=== PATIENT | female | born 1975 | race Hispanic/Latino ===

== ENCOUNTER 2018-01-13 12:32 | Inpatient (IN) | payer OTHER, SELFPAY ==
[2018-01-13 13:22] VITALS: BMI 32.1
[2018-01-13] MEDS ORDERED: Ondansetron HCl/PF 4 MG/2 ML Vial ONE ×2 (14:38→17:27)
[2018-01-13] MEDS ORDERED: Ketorolac Tromethamine 30 MG/ML VIAL ONE ×2 (14:38→17:27)
--- NOTE | 2018-01-13 15:07 | ULT ---
OBSTETRIC ULTRASOUND LIMITED SONOGRAPHIC BIOPHYSICAL PROFILE: History: 3rd trimester . Vaginal bleeding. FINDINGS: Single viable intrauterine gestation is present in cephalic presentation. Grade III placenta is anter ior and fundal without evidence of previa. Cervix is predominately obscured by the cranium. Amn iotic fluid index is 3.7. Good tone, breathing movements, and gross movements were demonstrated. IMPRESSION: 1. Sonographic biophysical profile score is: 6/8. 2. Oligohydramnios. EL = 3.7. POS: COLETTE
--- NOTE | 2018-01-13 15:32 | PDOC.LDHP ---
Labor and Delivery H&P Chief complaint: other (Vaginal spotting) HPI: This is a 42 yo female at 36.5 wks presenting to L&D from clinic with a cc of vaginal spotting. She states that the spotting started yesterday morning ( 01/12/18) while she was picking up her baby. She states that the fluid was pink in color and minimal. She states that it is made worse when she bears down. She denies abdominal or vaginal pain. She also states that she had vaginal lesions that started 2 days ago. She denies headaches, chest pain, dyspnea, nausea/ vomiting, and leg swelling. Current gestational age (weeks): 36 (36.5) Due date: 02/05/18 Dating criteria: last menstrual period (Confirmed by ultrasound) Grav: 6 Para: 6 ([id number]) Current complications: other (AMA, Grand multiparity) Abnormal US findings: Yes (Today, EL was 3.7, Anterior fundal placenta) Current medications: pre-humphrey vitamins Previous surgical history: other (right shoulder surgery) Social history: none - Physical Exam Vital signs reviewed and normal: yes General: NAD, resting Heart: RRR Lungs: CTAB Abdomen: NTTP Extremeties: no edema (Pulses present) Bovina contractions every: Baseline heart rate 160, moderate variablity, reactive NST - Vaginal Exam cm dilated: 0 (pink mucus, closed cervix, numerous vesicular leasions) Effacement: 0% - OB Labs Blood type: O RH: positive HIV: negative RPR: negative HEPSAg: negative 1 hour GCT: negative GBS: negative Rubella: immune - Assessment A/P 1. Admit to labor and delivery [id number] was educated on risks and benefits of and patient elects to proceed 2. Suspected PPROM due to oligohydramnios and visualized fluid from cervical os with valsalva occurring during clinic visit today 3. 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 AMA 5. Grand Multiparity <Rambo Wilson - Last Filed: 01/13/18 15:25> Para: 5 - OB Labs Antibody Screen: negative <Kathleen Canseco - Last Filed: 01/13/18 16:14> Allergies/Adverse Reactions: Allergies Allergy/AdvReac Type Severity Reaction Status Date / Time No Known Allergies Allergy Verified 01/13/18 13:11 Attending Addendum - Attending Addendum Date/Time: 01/13/18 3290 I personally evaluated the patient and discussed the management with Dr. Wilson I agree with the History, Examination, Assessment and Plan documented above with any addition or exceptions noted below. 42 yo at 36w5d dated by LMP consistent with 19w US sent from clinic for bleeding. Pt reports light pink discharge that started on the morning of the day prior to presentation. Discharge and light pink. Feels like she is peeling herself. Also complains of new vaginal rash that is painful and vesicular in nature. Denies ever having similar symptoms in past. On US she was found to have an EL of 3.7. Negative ferning and no pooling or fluid seen through os with valsalva. Amnisure not performed due to presence of blood. Active vesicular lesions and erythematous ulcerations noted at introitus and on vaginal side alston. Unable to definitively rule out rupture of membranes but given oligohydramnios delivery is indicated regardless. Primary delivery is recommended due to presence of active HSV lesions. Risks/benefits/ alternatives to delivery were discussed. Pt verbalized understanding and would like to proceed with delivery. Will give betamethasone as fetus is . <Kathleen Canseco - Last Filed: 01/13/18 16:14>
--- NOTE | 2018-01-13 15:33 | PDOC.APC ---
Antepartum Consult CONNIE JASMINE is a 42 year old female at 36w5d here to r/o SROM. I was consulted by Dr. Canseco with [facility] for spotting ( which limits the use of amnisure), oligohydramnios on ultrasound, and recent diagnosis of HSV (suspected primary outbreak) with active lesions. I performed a ferning test which was negative, however, I am not comfortable using this single test to completely rule out SROM. With the diagnosis of oligohydramnios alone, delivery between 36-38 weeks is recommended. Given this, along wtih the patient's new diagnosis of HSV with active lesions present and inability to completely rule out SROM, I recommend delivery as soon as possible by primary LTCS.
[2018-01-13] MEDS ORDERED: Docusate 100 MG CAP PO PRN (15:50)
[2018-01-13] MEDS ORDERED: Ondansetron HCl/PF 4 MG/2 ML Vial IVP PRN ×3 (15:50→16:37)
[2018-01-13] MEDS ORDERED: Promethazine HCl 25 MG/ML VIAL IM PRN ×2 (15:50→16:37)
[2018-01-13] MEDS ORDERED: CEFAZOLIN/Water 2 GM/20 ML SYRINGE SLOW IVP SCH (16:00)
[2018-01-13] MEDS ORDERED: Bicitra 30 ML UDCUP PO SCH (16:00)
[2018-01-13] MEDS ORDERED: Azithromycin 500 MG in Sodium Chloride 0.9% 250 ML 250 ML IVPB SCH (16:00)
[2018-01-13] MEDS: Lactated Ringer's 1,000 ML IV SCH ×3 (16:02→16:48)
[2018-01-13 16:14] LABS: Hemoglobin 14.5 g/dL (12.0-16.0); Mean Corpuscular HGB CONC 34.1 g/dL (32.0-36.0); Mean Corpuscular Volume 90.8 fL (78.0-98.0); Mean Platelet Volume 7.3 fL (7.4-10.4); Platelet Count 253 thou/uL (130-400); RBC Distribution Width 12.4 % (11.5-14.5); Red Blood Cell (RBC) Count 4.67 mill/uL (4.20-5.40); White Blood Cell (WBC) Count 12.1 thou/uL (4.8-10.8)
[2018-01-13] MEDS ORDERED: Betamet Acet/Betamet Na Ph 30 MG/5 ML VIAL IM SCH (16:15)
[2018-01-13] MEDS ORDERED: Eucerin (Mineral Oil/Petrolatum,White) 30 gm Jar TOP PRN (16:37)
[2018-01-13] MEDS ORDERED: Promethazine HCl 25 MG SUPP PR PRN (16:37)
[2018-01-13] MEDS ORDERED: Acetaminophen 1,000 MG in Premix Bag 1 BAG IVPB PRN (16:37)
[2018-01-13] MEDS ORDERED: diphenhydrAMINE 50 MG/ML VIAL IVP PRN (16:37)
[2018-01-13] MEDS ORDERED: Naloxone HCl 0.4 mg/ml Vial IVP PRN ×2 (16:37)
[2018-01-13] MEDS ORDERED: Naloxone HCl 0.4 mg/ml Vial IV PRN (16:37)
[2018-01-13] MEDS ORDERED: Communication Order-Pharmacy FS SCH (16:45)
[2018-01-13] MEDS ORDERED: Ketorolac Tromethamine 30 MG/ML VIAL IVP SCH (16:45)
[2018-01-13 16:56] LABS: HBSAg Index 0.21 S/CO (0-0.99); HIV (1/2) Antibody/Antigen Non-Reactive (NonReactive); HIV 1/2 INDEX 0.09 S/CO (<1.00); Hep B Surf Ag Non-Reactive S/CO (NonReactive); Syphilis Antibody Nonreactive (Nonreactive); Syphilis Antibody Index 0.05 S/CO (<1.00 Non-Reactive)
[2018-01-13] MEDS ORDERED: Oxytocin 10 UNITS/ML VIAL ONE (16:59)
[2018-01-13] MEDS ORDERED: Morphine PF 1 MG/ML SYR ONE (16:59)
[2018-01-13] MEDS ORDERED: Bupivacaine 0.75% W/DEXTROSE 8.25% 2 ML AMP ONE (17:01)
[2018-01-13] MEDS ORDERED: Lidocaine 1% PF 5 ML VIAL ONE (17:01)
[2018-01-13] MEDS ORDERED: PHENYLEPHRINE-NS 100 MCG/ML 10 ML SYRINGE ONE (17:10)
[2018-01-13] MEDS ORDERED: Fentanyl 100 MCG/2 ML VIAL ONE ×3 (17:43→18:03)
--- NOTE | 2018-01-13 19:08 | PDOC.OPDEL ---
OB Operative/Delivery Note Delivery Dr/Surgeon: Britt Meraz MD Assist: Laura Berry DO Pre-Delivery Diagnosis: other (Suspected ROM, active herpes lesions) Procedure/Post Delivery Dx: primary low transverse CS Weeks gestation: 36 (36.5) Anesthesia: spinal - Findings A Sex: male Weight: 2.722 kg - 1 min: 6 - 5 min: 8 - Additional Findings/Plan Placenta delivered: spontaneous findings: low transverse hysterotomy without extension Estimated blood loss: 700 mL Post delivery plan: routine recovery
[2018-01-13] MEDS ORDERED: Lanolin Ointment 7 GM TUBE TOP PRN (19:16)
[2018-01-13] MEDS ORDERED: NS / Oxytocin 40 units/1000ml 1,000 ML IV SCH (19:16)
[2018-01-13] MEDS ORDERED: Bisacodyl 10 MG SUPP PR PRN (19:16)
[2018-01-13] MEDS ORDERED: Adacel (T-DAP) 0.5 ML VIAL IM ONE (19:16)
[2018-01-13] MEDS ORDERED: Acetaminophen 325 MG TAB PO PRN (19:16)
[2018-01-13] MEDS: Ketorolac Tromethamine 30 MG/ML VIAL IVP SCH ×2 (19:31→22:57)
[2018-01-13] MEDS ORDERED: Acyclovir 400 mg Tablet PO SCH (21:00)
[2018-01-13] MEDS ORDERED: Ibuprofen 800 MG TAB PO SCH (22:00)
[2018-01-13] MEDS: Ferrous Sulfate 325 MG TAB PO SCH (22:18)
[2018-01-13] MEDS: Docusate Calcium (SURFAK) 240 MG CAP PO SCH (22:18)
--- NOTE | 2018-01-14 04:31 | PDOC.PP ---
Post Progress Note Post Day #: 1 Subjective: Patient resting comfortably. No complaints. She has not yet been up to walk. No excessive vaginal bleeding. Pain well controlled. No difficulty with breathing. Ambulation: no Vital Signs (12 hours) Temp Pulse Resp BP Pulse Ox 01/13/18 23:45 98.6 F 63 16 100/59 L 01/13/18 22:41 97.9 F 65 16 99/63 01/13/18 21:40 98.6 F 69 16 110/61 01/13/18 19:54 98.1 F 66 18 01/13/18 19:16 98.1 F 66 18 103/57 L 99 Weight Weight 79.832 kg - Physical Examination Cardiovascular: no m/r/g, RRR Respiratory: clear to auscultation bilaterally Abdominal: + bowel sounds, lochia (normal), no distention, appropriately TTP Fundus firm & at: umbilicus Deviation from normal: CS incision dry and covered Result Diagrams: 01/13/18 16:02 Additional Labs: Post Labs Blood Type O POSITIVE 01/13/18 16:02 Hep Bs Antigen Non-Reactive S/CO (NonReactive) 01/13/18 16:02 (1) delivery Code(s): O60.10X0 - LABOR W DELIVERY, UNSP TRIMESTER, UNSP Status: Acute (2) premature rupture of membranes (PPROM) delivered, current hospitalization Code(s): O42.919 - PRETRM MATIAS ROM, UNSP TIME BETW RUPT AND ONST LABR, UNSP TRI Status: Acute (3) Oligohydramnios delivered Code(s): O41.00X0 - OLIGOHYDRAMNIOS, UNSP TRIMESTER, NOT APPLICABLE OR UNSP Status: Acute (4) Herpes simplex virus (HSV) infection of vagina Code(s): A60.04 - HERPESVIRAL VULVOVAGINITIS Status: Acute (5) Advanced maternal age (AMA), 40 years or greater Code(s): HJR9358 - Status: Chronic - Assessment/Plan 42 yr old G6-->6006 at 36.5 wks now on post op day 1, delivered via secondary to suspected PPROM with oligohydramnios. performed 2/2 active HSC infection. 1. sIUP - delivered -EBL 700 ml -doing well -pain controlled -fundus firm -AM H/H labs pending -advance diet as tolerated -encouraged ambulation once able 2. PPROM suspected, s/p delivery 3. oligohydramnios, s/p delivery 4. HSV infection, vaginal -acyclovir <Sylvia Bai - Last Filed: 01/14/18 04:29> Vital Signs (12 hours) Temp Pulse Resp BP 01/14/18 08:05 98.3 F 55 L 20 01/14/18 07:40 98.3 F 55 L 20 88/50 L 01/14/18 04:45 97.9 F 55 L 16 100/60 01/14/18 02:00 16 01/13/18 23:45 98.6 F 63 16 100/59 L Weight Weight 79.832 kg Result Diagrams: 01/14/18 05:10 Additional Labs: Post Labs Blood Type O POSITIVE 01/13/18 16:02 Hep Bs Antigen Non-Reactive S/CO (NonReactive) 01/13/18 16:02 <Kathleen Canseco - Last Filed: 01/14/18 10:48> Attending Addendum - Attending Addendum Date/Time: 01/14/18 1047 I personally evaluated the patient and discussed the management with Dr. Bai I agree with the History, Examination, Assessment and Plan documented above with any addition or exceptions noted below. UOP average 80 ml/hr over 12hrs <Kathleen Canseco - Last Filed: 01/14/18 10:48>
[2018-01-14] MEDS: Ketorolac Tromethamine 30 MG/ML VIAL IVP SCH ×2 (04:32→11:51)
[2018-01-14] MEDS ORDERED: HYDROcodone/Acetaminophen 5/325 mg Tablet PO PRN (04:45)
[2018-01-14 05:33] LABS: Hemoglobin 11.9 g/dL (12.0-16.0); Mean Corpuscular HGB CONC 34.3 g/dL (32.0-36.0); Mean Corpuscular Hemoglobin 31.7 pg (27.0-31.0); Mean Corpuscular Volume 92.3 fL (78.0-98.0); Mean Platelet Volume 7.4 fL (7.4-10.4); Platelet Count 212 thou/uL (130-400); RBC Distribution Width 12.3 % (11.5-14.5); Red Blood Cell (RBC) Count 3.74 mill/uL (4.20-5.40); White Blood Cell (WBC) Count 14.6 thou/uL (4.8-10.8)
--- NOTE | 2018-01-14 05:40 | DN-2 ---
DATE OF PROCEDURE: 01/13/2018 RESIDENT SURGEON: Britt Meraz M.D. INFORMATION TECHNOLOGY ARCHITECT SURGEON: Laura Berry DO ATTENDING SURGEON: Kathleen Canseco D.O. PROCEDURE: Primary low transverse section. PREOPERATIVE DIAGNOSES: 1. intrauterine . 2. Rupture of membranes. 3. Positive HSV lesions. 4. Advanced maternal age. 5. Primary history of autism. POSTOPERATIVE DIAGNOSES: 1. intrauterine . 2. Rupture of membranes. 3. Positive HSV lesions. 4. Advanced maternal age. 5. Primary history of autism. ANESTHESIA: Spinal. INDICATIONS: The patient is a 42-year-old -0-0-5 at 36.5 weeks gestation who presented with con cern for rupture of membranes with active HSV lesions. PROCEDURE IN DETAIL: After risks, benefits, and alternatives were explained to the patient, she gave informed consent. Preoperative antibiotics included cefazolin 2 grams IV and azithromycin 500 mg IV . The patient was taken to the operating room and spinal anesthesia was initiated. She was placed i n supine position with left tilt and prepped and draped in usual sterile fashion. A Pfannenstiel inc ision was made with a scalpel and carried down to the level of the fascia, which was sharply nicked. The fascial cut was extended bilaterally with Mata scissors. The inferior and superior edges of the cut fascial edges were extended with Bree clamps and underlying rectus muscles were sharply and bl untly dissected free. The recti were divided digitally and retracted manually. The peritoneum was e ntered bluntly and retracted manually. Bladder blade was placed. Bladder flap was created with Garrison enbaum scissors. Low transverse scar was made with a scalpel and the uterus was entered in the midli ne with the scalpel. Clear fluid was seen. Hysterotomy was extended manually. The infant was noted to be vertex and delivered by fundal pressure with the addition of a vacuum assist. Mouth and nares were bulb suctioned. Cord clamped and cut and grossly normal male infant was handed to the awaiting nurse. Cord blood obtained and the cord sample was obtained for cord gases. Placenta was manually removed, found to be intact with three-vessel cord and sent to pathology. The uterus was externalize d and endometrium was curetted with a dry lap. Bladder blade was replaced and the uterus was closed with a running locking #1 Monocryl followed by a running nonlocking #1 Monocryl imbricating suture. Following this, hemostasis was noted. Stab wound was irrigated and suctioned free of clots. The [place] was internalized and hysterotomy was again noted to be hemostatic. The fascia was closed with a running nonlocking 0 Vicryl suture. Subcutaneous tissue was irrigated, and all bleeders were cauteri zed. The subcutaneous tissue was approximated with 3 interrupted 2-0 plain gut sutures. The skin wa s approximated with subcuticular 4-0 Monocryl suture in a running fashion. All counts were correct. The patient tolerated procedure well and taken to the recovery room in stable condition. ESTIMATED BLOOD LOSS: 700 mL COMPLICATIONS: None. SPECIMENS: Cord blood sent to lab for blood type and placenta sent to pathology. Cord segment obtai lola for blood gases. FINDINGS: Grossly normal male with Apgars of 6 and 8. Grossly normal placenta with three-ves tiffany cord discarded. DRAINS: Currie to gravity draining clear urine.
[2018-01-14] MEDS: Docusate Calcium (SURFAK) 240 MG CAP PO SCH ×2 (09:17→20:46)
[2018-01-14] MEDS: Prenatal Vitamin 1 TAB PO SCH (09:17)
[2018-01-14] MEDS: Ferrous Sulfate 325 MG TAB PO SCH ×2 (10:13→21:56)
--- NOTE | 2018-01-14 10:52 | PDOC.PP ---
Post Progress Note Post Day #: 1 Subjective: 42 yo [id number] POD# 1 s/p uncomplicated PLTCS for HSV outbreak in the setting of oligohydramnios secondary to suspected PPROM. Pt doing well this morning. Pain controlled. Has not ambulated or had spontaneous urination yet. Bleeding < menses. Denies dizziness. +Flatus. Baby stable in NICU PO intake tolerated: yes Flatus: yes Ambulation: no Vital Signs (12 hours) Temp Pulse Resp BP 01/14/18 08:05 98.3 F 55 L 20 01/14/18 07:40 98.3 F 55 L 20 88/50 L 01/14/18 04:45 97.9 F 55 L 16 100/60 01/14/18 02:00 16 01/13/18 23:45 98.6 F 63 16 100/59 L Weight Weight 79.832 kg - Physical Examination Cardiovascular: no m/r/g, RRR Respiratory: clear to auscultation bilaterally, non-labored breathing Abdominal: + bowel sounds, lochia, no distention, appropriately TTP Fundus firm & at: umbilicus Skin: CS incision dry & intact, no rash Neurological: no gross focal deficits Psychiatric: A&Ox3 Result Diagrams: 01/14/18 05:10 Additional Labs: Post Labs Blood Type O POSITIVE 01/13/18 16:02 Hep Bs Antigen Non-Reactive S/CO (NonReactive) 01/13/18 16:02 (1) delivery due to maternal disorder, delivered, curr hospitaliz Code(s): O82 - ENCOUNTER FOR DELIVERY WITHOUT INDICATION; O99.89 - OTH DISEASES AND CONDITIONS COMPL PREG/CHLDBRTH Status: Acute Comment: meeting appropriate postop milestones. Continue routine care anticipate d/c to home tomorrow or Tuesday (2) Herpes simplex virus (HSV) infection of vagina Code(s): A60.04 - HERPESVIRAL VULVOVAGINITIS Status: Acute Comment: IgG/IgM ordered at request of neonatology Continue acyclovir
[2018-01-14] MEDS: Simethicone Chewable 80 MG TAB PO PRN ×2 (11:52→20:46)
[2018-01-14] MEDS: Ibuprofen 800 MG TAB PO SCH ×2 (15:44→20:46)
[2018-01-14] MEDS: HYDROcodone/Acetaminophen 5/325 mg Tablet PO PRN (20:46)
[2018-01-15] MEDS: HYDROcodone/Acetaminophen 5/325 mg Tablet PO PRN (05:21)
[2018-01-15] MEDS: Ibuprofen 800 MG TAB PO SCH ×3 (05:22→21:03)
--- NOTE | 2018-01-15 06:57 | PDOC.PP ---
Post Progress Note Post Day #: 2 Subjective: Pt. States she is doing well. She has urinated, passed gas, and defecated. She states she is having some pain in her abdomen. She she states the pain is a 5/ 10 and is sharp and crampy. She states the pain is improved from yesterday. She denies nausea and vomiting. PO intake tolerated: yes Flatus: yes Ambulation: yes Vital Signs (12 hours) Temp Pulse Resp BP BP 01/15/18 05:20 98.3 F 59 L 16 90/53 L 01/14/18 23:41 98.0 F 62 16 86/51 L 01/14/18 20:00 97.6 F 63 16 99/50 L Weight Weight 79.832 kg - Physical Examination General: NAD (Resting comfortably) Cardiovascular: no m/r/g, RRR Respiratory: clear to auscultation bilaterally, non-labored breathing Abdominal: + bowel sounds, lochia, no distention, appropriately TTP Fundus firm & at: 4 cm below ubilicus Extremities: negative homans (B) Skin: CS incision dry & intact (Some dried blood at incision however no leaking of fluids), no rash Neurological: no gross focal deficits Psychiatric: A&Ox3, normal affect Result Diagrams: 01/14/18 05:10 Additional Labs: Post Labs Blood Type O POSITIVE 01/13/18 16:02 Hep Bs Antigen Non-Reactive S/CO (NonReactive) 01/13/18 16:02 (1) delivery due to maternal disorder, delivered, curr hospitaliz Code(s): O82 - ENCOUNTER FOR DELIVERY WITHOUT INDICATION; O99.89 - OTH DISEASES AND CONDITIONS COMPL PREG/CHLDBRTH Status: Acute Comment: meeting appropriate postop milestones. Continue routine care anticipate d/c to home tomorrow or Tuesday (2) Herpes simplex virus (HSV) infection of vagina Code(s): A60.04 - HERPESVIRAL VULVOVAGINITIS Status: Acute Comment: IgG/IgM ordered at request of neonatology Continue acyclovir (3) delivery Code(s): O60.10X0 - LABOR W DELIVERY, UNSP TRIMESTER, UNSP Status: Acute (4) premature rupture of membranes (PPROM) delivered, current hospitalization Code(s): O42.919 - PRETRM MATIAS ROM, UNSP TIME BETW RUPT AND ONST LABR, UNSP TRI Status: Acute (5) Oligohydramnios delivered Code(s): O41.00X0 - OLIGOHYDRAMNIOS, UNSP TRIMESTER, NOT APPLICABLE OR UNSP Status: Acute (6) Advanced maternal age (AMA), 40 years or greater Code(s): [id number] - Status: Chronic - Assessment/Plan PPD 2 s/p primary * Encourage ambulation, fluid intake, breast feeding, plan on nexlanon for pp contraception HSV vaginally * Continue acyclovir AMA * Encourage contraception and out patient follow up with education on future risks Oligohydramnios PPROM delivery <Rambo Wilson - Last Filed: 01/15/18 07:43> Vital Signs (12 hours) Temp Pulse Resp BP BP BP 01/15/18 07:59 98.4 F 72 16 113/70 01/15/18 05:20 98.3 F 59 L 16 90/53 L 01/14/18 23:41 98.0 F 62 16 86/51 L Weight Weight 79.832 kg Result Diagrams: 01/14/18 05:10 Additional Labs: Post Labs Blood Type O POSITIVE 01/13/18 16:02 Hep Bs Antigen Non-Reactive S/CO (NonReactive) 01/13/18 16:02 (1) delivery due to maternal disorder, delivered, curr hospitaliz Code(s): O82 - ENCOUNTER FOR DELIVERY WITHOUT INDICATION; O99.89 - OTH DISEASES AND CONDITIONS COMPL PREG/CHLDBRTH Status: Acute Comment: meeting appropriate postop milestones. Continue routine care anticipate d/c to home tomorrow or Tuesday (2) Herpes simplex virus (HSV) infection of vagina Code(s): A60.04 - HERPESVIRAL VULVOVAGINITIS Status: Acute Comment: IgG/IgM ordered at request of neonatology Continue acyclovir <Kathleen Canseco - Last Filed: 01/15/18 11:12> Attending Addendum - Attending Addendum Date/Time: 01/15/18 1109 I personally evaluated the patient and discussed the management with Dr. Wilson I agree with the History, Examination, Assessment and Plan documented above with any addition or exceptions noted below. 42 yo POD #2 s/p uncomplicated PLTCS for active HSV infection in the setting of oligohydramnios secondary to suspected PPROM Doing well today. Pain controlled. Lochia mild. Ambulating without dizziness. tolerating PO. +Spontaneous voiding and flatus Meeting appropriate milestones Anticipate d/c to home or room in on POD # 3 due to baby still in NICU. HSV antibodies still pending. <Kathleen Canseco - Last Filed: 01/15/18 11:12>
[2018-01-15] MEDS: Acyclovir 400 mg Tablet PO SCH ×4 (10:09→21:03)
[2018-01-15] MEDS: Prenatal Vitamin 1 TAB PO SCH (10:09)
[2018-01-15] MEDS: Docusate Calcium (SURFAK) 240 MG CAP PO SCH ×2 (10:09→19:59)
[2018-01-15] MEDS: Ferrous Sulfate 325 MG TAB PO SCH ×2 (10:41→21:30)
[2018-01-15] MEDS ORDERED: Ibuprofen 800 MG TAB PO SCH (22:00)
[2018-01-16] MEDS: Ibuprofen 800 MG TAB PO SCH ×2 (05:34→15:49)
--- NOTE | 2018-01-16 06:27 | PDOC.PP ---
Post Progress Note Post Day #: 3 Subjective: PT is resting comfortably in bed, no events overnight or complaints today. Denies abdominal pain, N/V/D, constipation. Would like to go home today. PO intake tolerated: yes Flatus: yes Ambulation: yes Vital Signs (12 hours) Temp Pulse Resp BP 01/15/18 20:00 98.3 F 67 20 105/61 Weight Weight 79.832 kg - Physical Examination General: NAD Cardiovascular: no m/r/g, RRR Respiratory: clear to auscultation bilaterally, non-labored breathing Abdominal: + bowel sounds, no distention Fundus firm & at: umbilicus Skin: CS incision dry & intact, no rash Neurological: no gross focal deficits Psychiatric: normal affect Result Diagrams: 01/14/18 05:10 Additional Labs: Post Labs Blood Type O POSITIVE 01/13/18 16:02 Hep Bs Antigen Non-Reactive S/CO (NonReactive) 01/13/18 16:02 (1) delivery due to maternal disorder, delivered, curr hospitaliz Code(s): O82 - ENCOUNTER FOR DELIVERY WITHOUT INDICATION; O99.89 - OTH DISEASES AND CONDITIONS COMPL PREG/CHLDBRTH Status: Acute Comment: has met appropriate post op milestones, will dc today (2) Herpes simplex virus (HSV) infection of vagina Code(s): A60.04 - HERPESVIRAL VULVOVAGINITIS Status: Acute Comment: IgG/IgM ordered at request of neonatology Continue acyclovir (3) Oligohydramnios delivered Code(s): O41.00X0 - OLIGOHYDRAMNIOS, UNSP TRIMESTER, NOT APPLICABLE OR UNSP Status: Resolved (4) delivery Code(s): O60.10X0 - LABOR W DELIVERY, UNSP TRIMESTER, UNSP Status: Resolved (5) premature rupture of membranes (PPROM) delivered, current hospitalization Code(s): O42.919 - PRETRM MATIAS ROM, UNSP TIME BETW RUPT AND ONST LABR, UNSP TRI Status: Resolved (6) Advanced maternal age (AMA), 40 years or greater Code(s): [id number] - Status: Chronic - Assessment/Plan PPD 3 s/p primary - For active HSV infection, suspected PPROM, oligohydramnios - Encourage ambulation, fluid intake, breast feeding, plan on nexlanon for pp contraception HSV vaginally - Continue acyclovir AMA - Encourage contraception and out patient follow up with education on future risks Dispo: will discharge today and encourge follow up for contraception outpatient <Abe Verma - Last Filed: 01/16/18 08:16> Weight Weight 79.832 kg Result Diagrams: 01/14/18 05:10 Additional Labs: Post Labs Blood Type O POSITIVE 01/13/18 16:02 Hep Bs Antigen Non-Reactive S/CO (NonReactive) 01/13/18 16:02 <Carmelina Worthington - Last Filed: 01/16/18 12:58> Attending Addendum - Attending Addendum Date/Time: 01/16/18943 I personally evaluated the patient and discussed the management with Dr. Verma I agree with the History, Examination, Assessment and Plan documented above with any addition or exceptions noted below- Patient without complaints. Ambulating without difficulty. Tolerating diet. Afebrile VSS. A/P: PPD#3 s/p 1* LCT C/S for active HSV- doing well. Ready for discharge. D/C home today . <Carmelina Worthington - Last Filed: 01/16/18 12:58>
[2018-01-16] MEDS: Docusate Calcium (SURFAK) 240 MG CAP PO SCH (09:20)
[2018-01-16] MEDS: Prenatal Vitamin 1 TAB PO SCH (09:20)
[2018-01-16] MEDS: Acyclovir 400 mg Tablet PO SCH ×2 (09:20→15:49)
[2018-01-16] MEDS: Ferrous Sulfate 325 MG TAB PO SCH (09:20)
[2018-01-16 09:58] VITALS: BP 98/54
[2018-01-16 12:29] VITALS: TEMP 98.1
[2018-01-16] MEDS: HYDROcodone/Acetaminophen 5/325 mg Tablet PO PRN (15:51)
[2018-01-16 22:09] LABS: HSV-2 IgG Type Specific Less than 0.91 index (0.00-0.90)
== END 2018-01-16 16:00 | disposition home or self-care (01) | DRG 765 ==
LOC: L&D/OP 12:32 → L&D 16:05 → 3SW 21:34
PROVIDERS: ADMIT Family Medicine; ATTEND Family Medicine
PROC: 10D00Z1 Extraction of Products of Conception, Low, Open Approach (ICD-10-PCS; principal; 2018-01-13)
DX: O98.32 Other infections with a predominantly sexual mode of transmission complicating childbirth (principal); O60.14X0 Preterm labor third trimester with preterm delivery third trimester, not applicable or unspecified; O42.913 Preterm premature rupture of membranes, unspecified as to length of time between rupture and onset of labor, third trimester; Z3A.36 36 weeks gestation of pregnancy; Z37.0 Single live birth
CPT/HCPCS: 36415; 51702; 76815; 76819; 85027; 86694; 86695; 86696; 86780; 86850; 86900; 86901; 87340; 87389; 88307; 90715; 99285; J0456; J0702; J1200; J1885; J2001; J2274; J2405; J2590; J3010; J3490; J7050

== ENCOUNTER 2020-06-03 15:09 | Day surgery (SDC) | payer OTHER ==
--- NOTE | 2020-06-03 15:10 | PDOC.FPROB ---
FMR OB H&P: HPI - History of Present Illness Chief Complaint: tachycardia Indentification: 44 yo @ 37.6 by 23.5 wk sono History of Present Illness: 44 yo @ 37.6 by 23.5 wk sono sent over from procedures clinic for tachycardia. Was there for routine APT due to AMA when NST showed persistent tachycardia in the 170-180s. Mom's pulse rate in the 90s. Aside from feeling more tired mom feels well. Denies fevers, chills, sick contact exposure. Has anemia of , taking iron BID. Endorses FM, denies VB/VD/LOF/CTX. Primary Care Physician: Dr. 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 - 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: Hx of HSV, denies hx of other STDs - Surgical History Sx History: One LTCS in 2018 - Social History Social History: Denies TAD - Family History Family History: Non contributory FMR OB H&P: Medications - Current Home Medications: Medication Instructions Recorded Confirmed Type Pnv No.95/Ferrous Fum/Folic AC 1 cap PO DAILY 08/28/15 06/03/20 History [ Tablet] Acyclovir [Zovirax] 400 mg PO TID 8 Days #24 tab 01/16/18 06/03/20 Rx Aspirin [Aspirin EC] 81 mg PO DAILY 06/03/20 06/03/20 History Allergies/Adverse Reactions: Allergies Allergy/AdvReac Type Severity Reaction Status Date / Time No Known Allergies Allergy Verified 06/03/20 15:54 FMR OB H&P: ROS - Review of Systems General: reports: fatigue. denies: fever/chills, weight/appetite/sleep changes ENT: denies: nasal congestion, rhinorrhea, frequent nose bleed, ear pain, toothache, sore throat Cardiovascular: denies: chest pain, palpitation, edema Respiratory: denies: cough, congestion, shortness of breath Gastrointestinal: denies: abdominal pain, indigestion, bloating, cramping, nausea, diarrhea, constipation Genitourinary (Female): denies: incontinence, dysuria, hematuria, vaginal pain, vaginal bleeding, vaginal pressure Musculoskeletal: denies: pain, stiffness, swelling Neurologic: denies: numbness, syncope, weakness, loss of counsciousness Integumentary: denies: itching, rash, lesions, discoloration Endocrine: denies: cold intolerance, heat intolerance Hematologic/Lymphatic: denies: prolonged or excessive bleeding, enlarged lymph nodes Psychological: denies: depression, anxiety FMR OB H&P: Vital Signs - Maternal Vital signs: BP 117/81 HR 88 T 98.7 - Heart Tones Baseline: 170 Variability: marked Acceleration: present Deceleration: absent Category: category 2 FMR OB H&P: Physical Exam - Physical Exam General: NAD, awake, alert and oriented HEENT: normocephalic and atraumatic, PERRLA, EOMI, MMM, conjunctiva clear, no scleral icterus, grossly normal vision, grossly normal hearing, good dention Neck: supple, FROM, trachea midline Heart: pulses present, no edema Deviation from normal: systolic murmur General: CTAB, no respiratory distress, good air movement, no wheezing, no retractions Abdomen: soft, gravid, fundus(cm) Musculoskeletal: pulses present, FROM in all four extremities Neurological: cranial nerves II through XII intact Skin: no rash, good tugor, capillary refill <2 seconds Lymphatic: no unusual bruising or bleeding, no purpura, no petechia Psychiatric: intact recent and remote memory, good judgement and insight, normal mood and affect FMR OB H&P: A/P Discussion: Date/Time: 06/03/20 1510 tachycardia -Present currently but with accels, no decels -Maternal pulse 90, afebrile -Will obtain BPP to fully assess well being of fetus -Will repeat CBC to assess for underlying maternal anemia -Consider fluid bolus depending on FHT, reassess AMA -Continue APT & PreE ASA ppx Grand multiparity -Aware -Uterotonics at bedside Hx of HSV -No active lesions at this time -Continue HSV ppx Hx of PPROM and PTD at 36.5 with Hx of LTCS 2/2 PPROM with active HSV -Plan for TOLAC at later date This H&P was discussed with Dr. Sosa who agrees with the above documentation and plan. Addendum - Attending - Attending Attestation Date/Time: 06/03/20 5387 I personally evaluated the patient and discussed the management with Dr. Yin. I agree with the History, Examination, Assessment and Plan documented above with any addition or exceptions noted below. tachycardia found on routine antepartum testing at clinic. BPP here 02/15. Hx anemia. check cbc, fluid bolus to see if this will resolve tachy. re- evaluate following fluid bolus.
[2020-06-03] MEDS ORDERED: hydrALAZINE 20 MG/ML VIAL SLOW IVP PRN (15:22)
[2020-06-03 16:01] VITALS: BMI 27.3
--- NOTE | 2020-06-03 17:06 | PDOC.BPN ---
- Brief Progress Note Per US tech, EL ~1202/15. Will await official report. Draw CBC to assess for anemia with hx of anemia of and no recent lab results on file 1L fluid bolus, will reassess afterwards
--- NOTE | 2020-06-03 17:13 | ULT ---
ULTRASOUND BIOPHYSICAL PROFILE: DATE: 06/03/2020 HISTORY: 44-year-old female with tachycardia FINDINGS: breathin tone: 2 movement: 2 Amniotic fluid volume: 2 lie: Vertex Placenta: Posterior. Maternal cervix: Obscured heart rate: 168 BPM EL: 12 cm. IMPRESSION: 1. Normal biophysical profile score of 8 out of 8, excluding the nonstress test. 2. heart rate 168 BPM.
[2020-06-03] MEDS: Lactated Ringer's 1,000 ML IV SCH ×2 (17:15→17:52)
[2020-06-03 17:33] LABS: #Eosinphils 0.4 thou/uL (0.0-0.7); #Lymphocytes 2.1 thou/uL (1.20-3.40); #Monocytes 0.5 thou/uL (0.11-0.59); #Neutrophils 7.2 thou/uL (1.40-6.50); %Basophils 0.4 % (0.0-1.0); %Eosinophils 3.9 % (0.0-10.0); %Lymphocytes 20.6 % (21.0-51.0); %Monocytes 4.7 % (0.0-10.0); %Neutrophils 70.4 % (42.0-75.0); Hemoglobin 11.4 g/dL (12.0-16.0); Mean Corpuscular Hemoglobin 24.4 pg (27.0-31.0); Mean Corpuscular Volume 76.2 fL (78.0-98.0); Mean Platelet Volume 9.2 fL (7.4-10.4); Platelet Count 301 thou/uL (130-400); RBC Distribution Width 16.9 % (11.5-14.5); White Blood Cell (WBC) Count 10.2 thou/uL (4.8-10.8)
--- NOTE | 2020-06-03 19:04 | PDOC.BPN ---
- Brief Progress Note Encounter Date: 06/03/20 Encounter Time: 19:00 Reviewed FHT s/p 1L bolus - now with FHR 130s, mod variability, + accels. Patient without complaint, not feeling contractions at this time. Reviewed labs as well, mild anemia with Hgb 11.4. Dispo: DC to home given improvement in tachycardia. Return if any concerns. F/u with [facility] (Dr. Sarmiento) within 1 week and continue weekly testing for AMA. Discussed with Dr. Torres. Cassi Gonzalez, DO, PGY-1
[2020-06-03 20:23] LABS: Amphetamine Not Detected (NotDetected); Barbiturates Screen Not Detected (NotDetected); Benzodiazepine Screen Not Detected (NotDetected); Cocaine Metabolite Screen Not Detected (NotDetected); Medtox Control Line Valid? VALID (VALID); Medtox Reader # READER 1; Methadone Not Detected (NotDetected); Methamphetamine Not Detected (NotDetected); Opiate Screen Not Detected (NotDetected); Oxycodone Screen Not Detected (NotDetected); Phencyclidine (PCP) Not Detected (NotDetected); THC/Cannabinoid Screen Not Detected (NotDetected); Tricyclic Screen Not Detected (NotDetected)
== END 2020-06-03 19:54 | disposition home or self-care (01) ==
LOC: L&D/OP 15:09
PROVIDERS: ATTEND Family Medicine
DX: O36.8330 Maternal care for abnormalities of the fetal heart rate or rhythm, third trimester, not applicable or unspecified (principal); O99.013 Anemia complicating pregnancy, third trimester; D64.9 Anemia, unspecified; O34.211 Maternal care for low transverse scar from previous cesarean delivery; O09.523 Supervision of elderly multigravida, third trimester; Z3A.37 37 weeks gestation of pregnancy; Z79.82 Long term (current) use of aspirin; Z86.19 Personal history of other infectious and parasitic diseases
CPT/HCPCS: 36415; 76819; 80306; 85025; 99282

== ENCOUNTER 2020-06-09 08:38 | Outpatient (CLI) | payer OTHER ==
[2020-06-09 19:13] LABS: SARS-CoV-2 MS2 Positive; SARS-CoV-2 N Gene Negative; SARS-CoV-2 S Gene Negative; SARS-CoV-2 by NAA Not Detected (NotDetected); SARS-CoV-2 orf1ab Negative
== END 2020-06-09 08:39 | disposition home or self-care (01) ==
LOC: LABBT 08:38
PROVIDERS: ATTEND Family Medicine
DX: Z20.828 Contact with and (suspected) exposure to other viral communicable diseases (principal)
CPT/HCPCS: 87635; U0003

== ENCOUNTER 2020-06-11 19:30 | Inpatient (IN) | payer OTHER, SELFPAY ==
[2020-06-12 04:07] VITALS: BMI 30.2
[2020-06-12] MEDS ORDERED: Meperidine HCl/PF 25 MG/ML VIAL IM/IV PRN (04:20)
[2020-06-12] MEDS ORDERED: Carboprost 250 MCG/ML AMP IM PRN (04:20)
[2020-06-12] MEDS ORDERED: Ondansetron PF 4 MG/2 ML Vial IVP PRN ×3 (04:20→18:26)
[2020-06-12] MEDS ORDERED: Lidocaine 1% (PF) 30 ML VIAL SC PRN (04:20)
[2020-06-12] MEDS ORDERED: Docusate 100 MG CAP PO PRN (04:20)
[2020-06-12] MEDS ORDERED: hydrALAZINE 20 MG/ML VIAL SLOW IVP PRN ×2 (04:20→18:26)
[2020-06-12] MEDS ORDERED: Acetaminophen 500 MG TAB PO PRN (04:20)
[2020-06-12] MEDS ORDERED: Methylergonovine 0.2 MG/ML VIAL IM PRN (04:20)
[2020-06-12] MEDS ORDERED: Butorphanol Tartrate 1 MG/ML VIAL SLOW IVP PRN (04:20)
[2020-06-12] MEDS ORDERED: Promethazine HCl 25 MG/ML VIAL IM PRN ×2 (04:20→14:16)
[2020-06-12] MEDS ORDERED: Ibuprofen 800 MG TAB PO PRN (04:20)
[2020-06-12 04:55] LABS: Hemoglobin 10.8 g/dL (12.0-16.0); Mean Corpuscular HGB CONC 32.1 g/dL (32.0-36.0); Mean Corpuscular Hemoglobin 24.6 pg (27.0-31.0); Mean Corpuscular Volume 76.5 fL (78.0-98.0); Platelet Count 264 thou/uL (130-400); RBC Distribution Width 17.1 % (11.5-14.5); Red Blood Cell (RBC) Count 4.39 mill/uL (4.20-5.40); White Blood Cell (WBC) Count 8.3 thou/uL (4.8-10.8)
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
[2020-06-12 05:37] LABS: Hep B Surf Ag Non-Reactive S/CO (NonReactive); Syphilis Antibody Nonreactive (Nonreactive); Syphilis Antibody Index 0.04 S/CO (<1.00 Non-Reactive)
--- NOTE | 2020-06-12 06:11 | PDOC.OBLPN ---
FMR OB Labor PN: Subj - Interval History Hospital Day: 1 Chief Complaint: eIOL Indentification: 44yo at 39.0wks FMR OB Labor PN: Obj - Maternal Vital signs: BP: [] HR: [] RR: [] Tmax: [] Pox: []% on [] Wt: [] FMR OB Labor PN: Exam - Physical Exam General: NAD, awake, alert and oriented HEENT: normocephalic and atraumatic, EOMI, grossly normal vision, grossly normal hearing Neck: supple, FROM Heart: no edema General: CTAB, no respiratory distress, good air movement Abdomen: soft, gravid, fundus(cm), non-tender Musculoskeletal: FROM in all four extremities Neurological: no focal deficit Lymphatic: no unusual bruising or bleeding Psychiatric: intact recent and remote memory, good judgement and insight, normal mood and affect - Pelvic Exam Membranes: Intact FMR OB Labor PN: Data - Labs Lab results: Laboratory Results - last 24 hr 06/12/20 06/12/20 06/12/20 04:41 04:41 04:41 WBC RBC Hgb Hct MCV MCH MCHC RDW Plt Count MPV Syphilis IgG/IgM Ab Nonreactive Hep Bs Antigen Non-Reactive Blood Type O POSITIVE Antibody Screen NEGATIVE 06/12/20 04:41 WBC 8.3 RBC 4.39 Hgb 10.8 L Hct 33.5 L MCV 76.5 L MCH 24.6 L MCHC 32.1 RDW 17.1 H Plt Count 264 MPV 9.0 Syphilis IgG/IgM Ab Hep Bs Antigen Blood Type Antibody Screen FMR OB Labor PN: A/P Disposition: Pt is a F at 39.1 wga by 23.5wk suhail who presents for IOL. IOL -patient desires TOLAC -cat 1 strip, toco shows irritability -cervical check 2/th/high on admission, Sal[place] of 3 -patient endorses occasional weak contractions Pitocin started at 0700 as balloon placement was not possible -Do not use cytotec as patient is a TOLAC -membranes intact -continue routine monitoring -continue cervical checks q2-3 hours while in latent phase of labor Hx of HSV -On Valtrex -no active lesions visualized on Speculum exam false positive RPR -will follow with RPR on admission vaginal discharge -large amount of white vaginal discharge with sterile speculum exam -VP3 obtained, follow up results Fe deficiency anemia -aware, continue iron Dispo: anticipate Discussion: Date/Time: 06/12/20 0609 This H&P was discussed with Dr. Saranya Perez and Dr. Carmelina Worthington who agree with the above documentation and plan.
[2020-06-12] MEDS ORDERED: NS w/ Oxytocin 10 units 500 ML IV SCH ×2 (06:30)
[2020-06-12] MEDS: Lactated Ringer's 1,000 ML IV SCH ×2 (07:00→13:45)
--- NOTE | 2020-06-12 11:11 | PDOC.OBLPN ---
FMR OB Labor PN: Subj - Interval History Hospital Day: 1 Chief Complaint: eIOL, TOLAC Indentification: 44F @ 39.1wks FMR OB Labor PN: Obj - Maternal Vital signs: BP: [] HR: [] RR: [] Tmax: [] Pox: []% on [] Wt: [] - Procedures Procedures: N/A AROM: clear fluid (Ruptured after cervical check) FMR OB Labor PN: Exam - Physical Exam General: NAD, awake, alert and oriented HEENT: normocephalic and atraumatic, EOMI, grossly normal vision, grossly normal hearing Neck: supple, FROM Heart: no edema General: no respiratory distress Abdomen: gravid Musculoskeletal: FROM in all four extremities Neurological: no focal deficit Skin: no rash Psychiatric: normal mood and affect - Pelvic Exam Vulva: normal hair distribution Cervix: no masses SVE: Membranes: SROM FMR OB Labor PN: Data - Labs Lab results: Laboratory Results - last 24 hr 06/12/20 06/12/20 06/12/20 04:41 04:41 04:41 WBC RBC Hgb Hct MCV MCH MCHC RDW Plt Count MPV Syphilis IgG/IgM Ab Nonreactive Hep Bs Antigen Non-Reactive Blood Type O POSITIVE Antibody Screen NEGATIVE 06/12/20 04:41 WBC 8.3 RBC 4.39 Hgb 10.8 L Hct 33.5 L MCV 76.5 L MCH 24.6 L MCHC 32.1 RDW 17.1 H Plt Count 264 MPV 9.0 Syphilis IgG/IgM Ab Hep Bs Antigen Blood Type Antibody Screen FMR OB Labor PN: A/P Disposition: Pt is a F at 39.1 wga by 23.5wk suhail who presents for IOL. IOL -patient desires TOLAC -cat 1 strip: baseline 130s, no decels, good variability -balloon could not be placed 2/2 cervical positioning, therefore pitocin started Do not use cytotec as patient is a TOLAC -cervical check 2//high on admission * Pitocin started at 0700 * 11:00 2 -toco shows ctx q3min -SROM after cervical check -continue routine monitoring -continue cervical checks q3-4 hours while in latent phase of labor Hx of HSV -On Valtrex -no active lesions visualized on Speculum exam false positive RPR -will follow with RPR on admission vaginal discharge -large amount of white vaginal discharge with sterile speculum exam -VP3 obtained, follow up results Fe deficiency anemia -aware, continue iron Diet: NPO IVF: LR 125mL/h + Pitocin PCP: SAMANTHA Sarmiento Disposition: expect Discussion: Date/Time: 06/12/20 6845 This H&P was discussed with [] and [] who agree with the above documentation and plan.
[2020-06-12] MEDS ORDERED: DISCONTINUE ALL PREVIOUS NARCOTICS FS SCH (13:00)
[2020-06-12] MEDS ORDERED: Bupivacaine 0.5% 20 ML, fentaNYL Citrate/PF 400 MCG in Sodium Chloride 0.9% 72 ML EPIDURAL SCH (13:00)
[2020-06-12] MEDS ORDERED: Bupivacaine/Epinephrine 0.25% 30 ML VIAL ONE (13:04)
[2020-06-12] MEDS ORDERED: Lidocaine 2% MPF 10 ML AMP (For Epidural Use) ONE (13:04)
[2020-06-12] MEDS ORDERED: Acetaminophen 325 MG TAB PO PRN (14:16)
[2020-06-12] MEDS ORDERED: ePHEDrine 50 MG/ML VIAL SLOW IVP PRN (14:16)
[2020-06-12] MEDS ORDERED: Naloxone HCl 0.4 mg/ml Vial IVP PRN ×2 (14:16)
[2020-06-12] MEDS ORDERED: diphenhydrAMINE 50 MG/ML VIAL IVP PRN (14:16)
[2020-06-12] MEDS ORDERED: Lactated Ringer's 500 ML IV PRN (14:16)
[2020-06-12] MEDS ORDERED: Fentanyl 4 mcg/Bupivacaine 0.1% Cassette 100 ML EPIDURAL SCH (14:30)
[2020-06-12] MEDS ORDERED: Communication Order-Pharmacy FS SCH (14:30)
--- NOTE | 2020-06-12 15:12 | PDOC.LDPN ---
Labor & Delivery Progress Note - Subjective Subjective: comfortable, painful contractions - Objective Vital signs reviewed and normal: yes General: NAD Dilation: 4/75/-1 Effacement: 75% Station: -1 FHT: category 1, variability present [place] contractions every: 2 min IUPC placed: yes (1500) Plan: pitocin for augmentation
[2020-06-12] MEDS: NS / Oxytocin 40 units/1000ml 1,000 ML IV PRN ×2 (17:30→18:44)
--- NOTE | 2020-06-12 18:15 | PDOC.OPDEL ---
OB Operative/Delivery Note Delivery Dr/Surgeon: Garth/Martha Pre-Delivery Diagnosis: elective induction Procedure/Post Delivery Dx: vaginal delivery after CS Weeks gestation: 39 Anesthesia: epidural - Additional Findings/Plan Placenta delivered: spontaneous Repaired Obstetrical Laceration: none (Cervical abrasion, hemostatic) Estimated blood loss: QBL 50mL Compilations/Other Findings: Delivering Physician: Garth Attending: Martha Procedure: Spontaneous Vaginal Delivery Anesthesia: epidural EBL: 50 ml Pre-op Diagnosis: 1. 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 Vaginal discharge 5. Fe deficiency anemia Post-op Diagnosis: 1. Term intrauterine , delivered 2-5. same as above Indications: A 44y/o female presented to L&D for elective induction. Delivery Note: This is a 44yo F G5 now P6107 @ 39.1wks who delivered a viable M at 1727. Antepartum course was notable for heartrate deceleration into the 70s which prompted consideration of a vacuum-assisted delivery, but was delivered shortly after without operative intervention. A vigorous M was delivered over an intact perineum in the occipitoanterior position. Anterior Shoulder and then remainder of the body delivered. No nuchal cord. The head was held down and mouth and nares were bulb suctioned. Cord clamped and cut and cord blood collected. Placenta delivered intact with a 3 vessel cord noted. Fundal massage was performed and the fundus was firm. The cervix and vagina were inspected and the cervix was found to have a hemostatic abrasion. Infant went to nursery in good condition for routine care. Apgars were 8/9 at 1 & 5 minutes, respectively. Patient tolerated delivery well and went to after routine recovery/care. Post delivery plan: routine recovery Addendum - Attending - Attending Attestation Date/Time: 06/13/20 1419 I was present for the entire procedure.
[2020-06-12] MEDS ORDERED: Bisacodyl 10 MG SUPP PR PRN (18:26)
[2020-06-12] MEDS ORDERED: Benzocaine-Menthol 82.5 ML CAN TOP PRN (18:26)
[2020-06-12] MEDS ORDERED: NS / Oxytocin 40 units/1000ml 1,000 ML IV SCH (18:26)
[2020-06-12] MEDS ORDERED: diphenhydrAMINE 25 MG CAP PO PRN (18:26)
[2020-06-12] MEDS ORDERED: Lanolin Ointment 7 GM TUBE TOP PRN (18:26)
[2020-06-12] MEDS ORDERED: Milk Of Magnesia 30 ML UDCUP PO PRN (18:26)
[2020-06-12] MEDS ORDERED: Preparation H Ointment 28 GM TUBE PR PRN (18:26)
[2020-06-12] MEDS: Ibuprofen 800 MG TAB PO SCH (23:54)
[2020-06-12] MEDS: Docusate Calcium (SURFAK) 240 MG CAP PO SCH (23:54)
--- NOTE | 2020-06-13 06:15 | PDOC.PP ---
Post Progress Note Post Day #: 1 Subjective: No concerns. Has eaten/walked. Whataburger bag on table. Pain well controlled. PO intake tolerated: yes Flatus: yes Ambulation: yes Vital Signs (12 hours) Temp Pulse Resp BP Pulse Ox 06/12/20 23:50 97.8 F 75 16 90/52 L 06/12/20 21:36 83 20 108/64 97 06/12/20 20:30 98.5 F 87 16 113/70 97 Weight Weight 74.843 kg - Physical Examination General: NAD Cardiovascular: no m/r/g, RRR Respiratory: clear to auscultation bilaterally, non-labored breathing Abdominal: lochia (downtrending), no distention, appropriately TTP Fundus firm & at: level of umbilicus Neurological: no gross focal deficits Psychiatric: A&Ox3, normal affect Result Diagrams: 06/12/20 04:41 Additional Labs: Post Labs Hep Bs Antigen Non-Reactive S/CO (NonReactive) 06/12/20 04:41 Blood Type O POSITIVE 06/12/20 04:41 - Assessment/Plan 44 yo G7 now P6107 delivered at 39.1 wga PPD #1 s/p - routine cares - meeting milestones - pain well controlled w/ ibuprofen. - may d/c today or tomorrow pending Tbili of at 24 HOL Hx of HSV - november d/c antiviral ppx AMA Grand multiparity - monitor today for delayed hemorrhage, however fundus is firm Iron deficiency anemia is - minimal blood loss at delivery - continue iron & PNV Dispo: d/c today or tomorrow. Addendum - Attending - Attending Attestation Date/Time: 06/13/20 1137 I personally evaluated the patient and discussed the management with Dr. Sarmiento I agree with the History, Examination, Assessment and Plan documented above with any addition or exceptions noted below - Patient without complaints. Afebrile VSS. A/P: 1) PPD#1 S/P - continue routine care. Anticipate d/c home later today of infant's bilirubin level appropriate.
[2020-06-13] MEDS: Ibuprofen 800 MG TAB PO SCH ×2 (08:47→16:39)
[2020-06-13] MEDS: Docusate Calcium (SURFAK) 240 MG CAP PO SCH (08:47)
[2020-06-13] MEDS: Ferrous Sulfate 325 MG TAB PO SCH ×2 (08:48→16:45)
[2020-06-13] MEDS ORDERED: Adacel (T-DAP) 0.5 ML SYRINGE IM ONE (09:00)
[2020-06-13] MEDS ORDERED: Prenatal Vitamin 1 TAB PO SCH (09:00)
[2020-06-13 19:55] VITALS: BP 91/52; TEMP 98.1
== END 2020-06-13 20:30 | disposition home or self-care (01) | DRG 806 ==
LOC: L&D 06-12 03:34 → 3SW 06-12 21:06
PROVIDERS: ADMIT Family Medicine; ATTEND Family Medicine
PROC: 3E033VJ Introduction of Other Hormone into Peripheral Vein, Percutaneous Approach (ICD-10-PCS; principal; 2020-06-12)
PROC: 10E0XZZ Delivery of Products of Conception, External Approach (ICD-10-PCS; 2020-06-12)
DX: O34.211 Maternal care for low transverse scar from previous cesarean delivery (principal); O98.52 Other viral diseases complicating childbirth; Z37.0 Single live birth; Z3A.39 39 weeks gestation of pregnancy; B00.9 Herpesviral infection, unspecified; O99.02 Anemia complicating childbirth; D50.9 Iron deficiency anemia, unspecified; O71.89 Other specified obstetric trauma; O76 Abnormality in fetal heart rate and rhythm complicating labor and delivery; Z20.828 Contact with and (suspected) exposure to other viral communicable diseases; Z79.899 Other long term (current) drug therapy
CPT/HCPCS: 51702; 85027; 86780; 86850; 86900; 86901; 87340; 87480; 87510; 87660; J2001; J3010; J3490